=== PATIENT | female | born 1945 | race Caucasian/White ===

== ENCOUNTER → 2016-05-05 | Outpatient (CLI) | payer BC ==
[~2016-05-05] MED LIST: B-COTAB97 PO; CHOLCAP5 PO; CINA0.42 PO; CZR50 PO; FURO-85 PO; GLIM2TAB2 PO; HMLI SC; INSU3INJ3 SC; INSUINJ12 SC; LSX80 PO; LVMIPUC SQ; METO50TA16 PO; SEVE800T7 PO; SIMV20TA5 PO
[2016-05-05 14:00] LABS: BASO % 0.3 %; BASO ABS # 0.01 K/uL (0-0.2); COMPLETE YES; EOS % 1.6 %; IG% 0.3 %; LYMPH % 36.6 %; LYMPH ABS # 1.41 K/uL (1.2-3.4); MEAN CELL VOLUME 92.6 fL (80-100); MEAN CORPUSCULAR HEMOGLOBIN 32.7 pg (25-34); MEAN CORPUSCULAR HGB CONC 35.3 g/dl (32-36); MEAN PLATELET VOLUME 10.2 fL (7.4-10.4); MONO % 9.9 %; NEUT % 51.3 %; PLATELET COUNT 159 K/uL (130-400); RED BLOOD COUNT 3.24 M/uL (4.2-5.4); WHITE BLOOD COUNT 3.85 K/uL (4.8-10.8)
[2016-05-05 14:19] LABS: ALB/GLOB RATIO 0.9 (0.9-2); ALKALINE PHOSPHATASE 134 U/L (45-117); ALT/SGPT 19 U/L (12-78); AST/SGOT 18 U/L (15-37); BLOOD UREA NITROGEN 19 mg/dl (7-18); BUN/CREATININE RATIO 4.2 (10-20); CARBON DIOXIDE 27 mmol/L (21-32); CHLORIDE 100 mmol/L (98-107); CHOLESTEROL 126 mg/dl (0-200); CHOLESTEROL/HDL RATIO 3.6; ESTIMATED AVERAGE GLUCOSE 180 mg/dl; GLUCOSE 234 mg/dl (70-99); HA1C FLAG Normal (Normal); HDL CHOLESTEROL 35 mg/dl; LDL CHOLESTEROL CALCULATED 53 mg/dl; POTASSIUM 3.6 mmol/L (3.5-5.1); SODIUM 138 mmol/L (136-145); TRIGLYCERIDES 192 mg/dl (0-150); VERY LOW DENSITY LIPOPROT CALC 38 mg/dl
== END | disposition home or self-care (01) ==
LOC: C.LABSPEC 14:46
PROVIDERS: ATTEND Family Medicine
DX: E78.2 Mixed hyperlipidemia (principal); E11.9 Type 2 diabetes mellitus without complications; I10 Essential (primary) hypertension

== ENCOUNTER 2016-06-06 05:42 | Inpatient (IN) | payer BC, OTHER ==
[~2016-06-06] VITALS: Ht 165.1 cm; Wt 84.9 kg
[2016-06-06] VITALS (16 sets, daily range): BP systolic 113–183; BP diastolic 62–96; PULSE 64–75; TEMP 36.5–36.8; O2SAT 92–95; Ht 165.1 cm; Wt 84.9 kg
[~2016-06-06 05:42] MED LIST changes: -ATROPINE SULFATE 0.1 MG/ML 5ML SYR IV PRN; -B-COTAB97 PO; -BRIMONIDINE TART 0.2% OP SOLN PER DROP CHARGE ONE; -CINA0.42 PO; -CYCLOPENTOLATE HCL 1% OP SOLN PER DROP CHARGE OPR SCH; -CZR50 PO; -EpHEDrine SULFATE INJ 50 MG/ML AMP IV PRN; -EpINEphrine INJ 1MG/ML AMP 1 MG/ML AMP ONE; -INSU3INJ3 SC; -KETOROLAC 0.5% OP SOLN PER DROP CHARGE OPR SCH; -LACTATED RINGER'S 1000ML 500 ML IV SCH; -LIDOCAINE 4% OP SOLN DROP CHARGE ONE; -LIDOCAINE 4% OP SOLN DROP CHARGE OPR SCH; -LIDOCAINE HCL 1% MPF 2 ML VIAL ONE; -LSX80 PO; -LVMIPUC SQ; -MOXIFLOXACIN OPH SOLN PER DROP CHARGE ONE; -MOXIFLOXACIN OPH SOLN PER DROP CHARGE OPR SCH; -PHENYLEPHRINE HCL 2.5% OP SOLN PER DROP CHARGE OPR SCH; -POVIDONE-IODINE OP SOLN 30 ML BTL ONE; -PROPARACAINE 0.5% OP SOLN PER DROP CHARGE OPR SCH; -TOBRAMYCIN/DEXAMETHASONE OPH OINT PER APPLN CHARGE ONE; -TROPICAMIDE 1% OP SOLN PER DROP CHARGE OPR SCH
[2016-06-06] MEDS ORDERED: NITROGLYCERIN OINT 2% 1GM PACKET ONE (05:55)
[2016-06-06] MEDS ORDERED: NITROGLYCERIN OINT 2% 1GM PACKET EXT ONE (06:00)
[2016-06-06 06:06] LABS: BASO % 0.1 %; BASO ABS # 0.01 K/uL (0-0.2); COMPLETE YES; EOS % 1.8 %; HEMATOCRIT 32.6 % (37-47); IG% 0.1 %; LYMPH % 43.5 %; LYMPH ABS # 3.07 K/uL (1.2-3.4); MEAN CELL VOLUME 91.8 fL (80-100); MEAN CORPUSCULAR HEMOGLOBIN 32.1 pg (25-34); MEAN PLATELET VOLUME 9.5 fL (7.4-10.4); MONO % 7.5 %; PLATELET COUNT 200 K/uL (130-400); RED BLOOD COUNT 3.55 M/uL (4.2-5.4); WHITE BLOOD COUNT 7.05 K/uL (4.8-10.8)
[2016-06-06] MEDS ORDERED: CINA0.42 PO (06:06)
[2016-06-06] MEDS ORDERED: LVMIPUC SQ (06:06)
[2016-06-06] MEDS ORDERED: LORAZEPAM 2 MG/ML 1 ML VIAL IV STA (06:07)
[2016-06-06] MEDS ORDERED: FUROSEMIDE 40 MG/4 ML VIAL IV STA (06:08)
--- NOTE | 2016-06-06 06:09 | EMERGENCY ROOM VISIT NOTE ---
History Report prepared by George: Porter Ta Under the Supervision of: Dr. Desire Miller M.D. First contact with patient: 05:51 Chief Complaint: SHORTNESS OF BREATH Stated Complaint: CHEST PAIN-DIALYSIS History of Present Illness The patient is a 70 year old female who presents to the Emergency Room with complaints of worsening shortness of breath that began at 0415 this morning, 2 hours prior to arrival. The patient called her daughter for help when her symptoms began. Her daughter then called her dialysis clinic in [place] who referred her to [place]. On their drive to [place] the patient became increasingly short of breath and they decided to divert to the emergency department. The patient still produces some urine. She denies recent fever, cough. Pt denies CP. 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 A total of 10 systems reviewed and were otherwise negative. Past Medical & Surgical Medical Problems: (1) End-stage renal disease on hemodialysis (2) SOB (shortness of breath) End-stage renal disease on hemodialysis Family History No pertinent secondary to patient age. Social History Smoking Status: Never Smoker Drug Use: none Marital Status: Housing Status: lives alone Occupation Status: retired Current/Historical Medications Scheduled B-Complex W/ C & Folic Acid ([place]), 1 MG PO DAILY Cholecalciferol (Vitamin D3), 5,000 UNITS PO QAM Cinacalcet (Sensipar), 30 MG PO QPM Furosemide (Furosemide), 80 MG PO DAILY Glimepiride (Glimepiride), 2 MG PO BID Insulin Detemir (Levemir Flextouch), 64 SC PM Losartan Potassium (Losartan Potassium), 50 MG PO DAILY Metoprolol Tartrate (Lopressor) (Lopressor), 50 MG PO BID Sevelamer Carbonate (Renvela), 1 TAB PO WITH SNACKS Sevelamer Carbonate (Renvela), 2 TAB PO TIDM Simvastatin (Zocor), 20 MG PO QAM Allergies Coded Allergies: No Known Allergies (Unverified , 06/06/16) Physical Exam Vital Signs Date Time Temp Pulse Resp B/P Pulse Ox O2 Delivery O2 Flow Rate FiO2 06/06/16 08:44 71 16 169/99 98 06/06/16 08:21 69 06/06/16 07:57 69 18 182/94 98 Nasal Cannula 06/06/16 06:29 73 24 191/109 96 Nasal Cannula 2.0 06/06/16 06:20 74 28 213/105 96 Nasal Cannula 2.0 06/06/16 05:58 79 06/06/16 05:56 89 Room Air 06/06/16 05:54 36.9 78 28 208/112 89 Room Air Physical Exam Vital signs reviewed. Noted to be hypertensive. General: Elderly female in mild distress. HEENT: No scleral icterus, PERRLA, neck supple. Atraumatic. Cardiovascular: Regular rate and rhythm, no extra sounds. Pulmonary: Coarse breath sounds bilaterally, increased work of breathing. On n/ c oxygen Abdomen: Soft, nontender, nondistended, positive bowel sounds. Musculoskeletal: Atraumatic, minimal peripheral edema. Neurologic: Patient awake alert and oriented x 3 Skin: Warm, dry, no rash Medical Decision & Procedures ER Provider Diagnostic Interpretation: X-ray results as stated below per my interpretation and radiologist interpretation. Other radiology results as stated below per my review and radiologist interpretation: CHEST ONE VIEW PORTABLE CLINICAL HISTORY: Shortness of breath, congestive failure. COMPARISON STUDY: 06/19/2014 FINDINGS: The heart is enlarged. There is radiographic evidence of congestive failure with interstitial pulmonary edema. There are small bilateral pleural effusions left greater than right. There is no lobar consolidation.[ IMPRESSION: Cardiomegaly, congestive failure with interstitial pulmonary edema, and small bilateral pleural effusions. Electronically signed by: Ector Monique M.D. 06/06/2016 6:29 AM Dictated Date/Time: 06/06/2016 6:29 AM Laboratory Results Test 06/06/16 05:50 06/06/16 06:02 06/06/16 06:03 06/06/16 06:08 Immature Granulocyte % (Auto) 0.1 % White Blood Count 7.05 K/uL (4.8-10.8) Red Blood Count 3.55 M/uL (4.2-5.4) Hemoglobin 11.4 g/dL (12.0-16.0) Hematocrit 32.6 % (37-47) Mean Corpuscular Volume 91.8 fL (80-100) Mean Corpuscular Hemoglobin 32.1 pg (25-34) Mean Corpuscular Hemoglobin Concent 35.0 g/dl (32-36) Platelet Count 200 K/uL (130-400) Mean Platelet Volume 9.5 fL (7.4-10.4) Neutrophils (%) (Auto) 47.0 % Lymphocytes (%) (Auto) 43.5 % Monocytes (%) (Auto) 7.5 % Eosinophils (%) (Auto) 1.8 % Basophils (%) (Auto) 0.1 % Neutrophils # (Auto) 3.30 K/uL (1.4-6.5) Lymphocytes # (Auto) 3.07 K/uL (1.2-3.4) Monocytes # (Auto) 0.53 K/uL (0.11-0.59) Eosinophils # (Auto) 0.13 K/uL (0-0.5) Basophils # (Auto) 0.01 K/uL (0-0.2) Immature Granulocyte # (Auto) 0.01 K/uL (0.00-0.02) Total Bilirubin 0.7 mg/dl (0.2-1) Direct Bilirubin 0.2 mg/dl (0-0.2) Aspartate Amino Transf (AST/SGOT) 15 U/L (15-37) Alanine Aminotransferase (ALT/SGPT) 23 U/L (12-78) Alkaline Phosphatase 201 U/L (45-117) Total Creatine Kinase 37 U/L (26-192) Total Protein 7.5 gm/dl (6.4-8.2) Albumin 3.4 gm/dl (3.4-5.0) Prothrombin Time 11.8 SECONDS (9.0-12.0) Prothromb Time International Ratio 1.1 (0.9-1.1) Activated Partial Thromboplast Time 27.3 SECONDS (21.0-31.0) Partial Thromboplastin Ratio 1.1 Bedside Hemoglobin 11.6 g/dl (12.0-16.0) Bedside Hematocrit 34 % (37-47) Bedside Sodium 140 mEq/L (135-144) Bedside Potassium 4.1 mEq/L (3.3-5.0) Bedside Chloride 101 mEq/L (101-112) Bedside Total CO2 23 mEq/l (24-31) Bedside Blood Urea Nitrogen 34 mg/dl (7-18) Bedside Creatinine 6.4 mg/dl (0.6-1.3) Bedside Glucose (other) 218 mg/dl (70-99) Bedside Ionized Calcium (Zachary) 0.96 mmol/l (1.12-1.32) Bedside Troponin I 0.000 ng/ml (0-0.045) TS-Vdh-R-Type Natriuretic Peptide > 96588 pg/ml (0-900) Laboratory results per my review. Medications Administered Medications (Trade) Dose Ordered Sig/Ramy Route Start Time Stop Time Status Last Admin Dose Admin Nitroglycerin (Nitroglycerin 2% Oint) 1 inch NOW ONCE EXT 06/06/16 06:00 06/06/16 06:01 DC 06/06/16 06:00 1 INCH Lorazepam (Ativan Inj) 1 mg NOW STAT IV 06/06/16 06:07 06/06/16 06:08 DC 06/06/16 06:11 1 MG Furosemide (Lasix Inj) 40 mg NOW STAT IV 06/06/16 06:08 06/06/16 06:09 DC 06/06/16 06:13 40 MG Albumin Human (Albumin 25%) 12.5 gm NOW STAT IV 06/06/16 08:17 06/06/16 08:18 DC 06/06/16 09:10 12.5 GM ECG Indication: chest pain, SOB/dyspnea Rate (beats per minute): 77 Rhythm: normal sinus Findings: nonspecific-ST abn, prolonged QT (518), other (Poor quality baseline for interpretation) ED Course 0553: Past medical records reviewed. The patient was evaluated in room A11. A complete history and physical examination was performed. 0600: Ordered Nitroglycerin 1 inch EXT 0607: Ordered Lorazepam 1 mg IV, Furosemide 40 mg IV. 0635: I discussed the case with Dr. Jose Ramon Baez Tax Revenue Officer, she will coordinate dialysis in the hospital today. She notes the patient's blood pressure is normally elevated. 0654: I discussed the case with Dr. Haroldo Baez Hospitalist at this time , he will evaluate the patient for further treatment. Medical Decision DDx: Etiologies such as infections, reactive airway disease, pneumonia, pneumothorax , COPD, CHF, cardiac ischemia, pulmonary embolism, musculoskeletal, gastrointestinal, as well as others were entertained. This pt was evaluated and appeared to be in some respiratory discomfort. IV access was obtained and lab work was drawn. Pt was placed on the information writer and NTG paste was applied to ACW. Pt was given IV lasix. EKG reveals no acute ischemia. CXR reveals congestive changes. Lab work reveals a stable K at 4.0, cardiac enzymes are negative. Pt was unable to tolerate BiPAP but was able to maintain her O2 sats with n/c O2. Pt was d/w Dr Juarez of nephrology who has agreed to arrange urgent dialysis. Pt will be evaluated by the hospitalist service for further management. Consults Time Called: 06 Consulting Physician: Dr. Jose Ramon Baez Tax Revenue Officer. Returned Call: 0600 I discussed the case with Dr. Jose Ramon Baez Tax Revenue Officer, she will coordinate dialysis in the hospital today. She notes the patient's blood pressure is normally elevated. Additional Consults: Time Called: 0651 Consulted Physician: Dr. Haroldo Baez Hospitalist Returned Call: [phone] Additional Comments: I discussed the case with Dr. Haroldo Beal at this time, he will evaluate the patient for further treatment. Impression Primary Impression: Congestive heart failure Additional Impression: End-stage renal disease on hemodialysis Critical Care I have personally spent greater than 30 minutes of critical care time in the direct management of this patient. This includes bedside care, interpretation of diagnostic studies, and testing, discussion with consultants, patient, and family members, and other required patient management activities. This 30 minutes is in excess of all separately billable procedures. Scribe Attestation The scribe's documentation has been prepared under my direction and personally reviewed by me in its entirety. I confirm that the note above accurately reflects all work, treatment, procedures, and medical decision making performed by me. Departure Information Dispostion Being Evaluated By Hospitalist Referrals [facility] ([facility] Patient Instructions My [facility] Problem Qualifiers Primary Impression: Congestive heart failure Congestive heart failure type: unspecified congestive heart failure type Congestive heart failure chronicity: unspecified congestive heart failure chronicity Qualified Codes: I50.9 - Heart failure, unspecified
[2016-06-06 06:20] LABS: ISTAT CREATININE 6.4 mg/dl (0.6-1.3); ISTAT HEMOGLOBIN 11.6 g/dl (12.0-16.0); ISTAT IONIZED CALCIUM 0.96 mmol/l (1.12-1.32)
--- NOTE | 2016-06-06 06:31 | DIAGNOSTIC IMAGING REPORT ---
CHEST ONE VIEW PORTABLE CLINICAL HISTORY: Shortness of breath, congestive failure. COMPARISON STUDY: 06/19/2014 FINDINGS: The heart is enlarged. There is radiographic evidence of congestive failure with interstitial pulmonary edema. There are small bilateral pleural effusions left greater than right. There is no lobar consolidation.[ IMPRESSION: Cardiomegaly, congestive failure with interstitial pulmonary edema, and small bilateral pleural effusions. Electronically signed by: Ector Monique M.D. 06/06/2016 6:29 AM Dictated Date/Time: 06/06/2016 6:29 AM
[2016-06-06 06:38] LABS: BUN/CREATININE RATIO 4.8 (10-20); CALCIUM 7.4 mg/dl (8.5-10.1); CKMB/CK RATIO 2.2 (0-3.0); MAGNESIUM 2.3 mg/dl (1.8-2.4)
[2016-06-06] MEDS ORDERED: ALBUT/IPRATROP 3MG/0.5MG NEB 3 ML VIAL INH STA (06:59)
[2016-06-06] MEDS ORDERED: ALBUMIN HUMAN 25% 12.5 GM/50 ML VIAL IV STA (08:17)
[2016-06-06] MEDS ORDERED: CZR50 PO (08:55)
[2016-06-06] MEDS ORDERED: LSX80 PO (08:57)
[2016-06-06] MEDS ORDERED: CALCIUM GLUCONATE 10% 1,000 MG in SODIUM CHLORIDE 0.9% 50ML 50 ML IV ONE (09:00)
[2016-06-06] MEDS ORDERED: INSU3INJ3 SC (09:02)
[2016-06-06] MEDS ORDERED: B-COTAB97 PO (09:05)
[2016-06-06] MEDS ORDERED: DEXTROSE 50% 50 ML SYR IV PRN (09:15)
[2016-06-06] MEDS ORDERED: GLUCOSE 10 TABS/TUBE PO PRN (09:15)
[2016-06-06] MEDS ORDERED: GLUCAGON FOR INJ 1 MG VIAL SQ PRN (09:15)
[2016-06-06] MEDS ORDERED: GLUCOSE 40% GEL 15 GM TUBE PO PRN (09:15)
[2016-06-06] MEDS ORDERED: SEVELAMER HYDROCH 800 MG TAB PO PRN (09:15)
[2016-06-06] MEDS ORDERED: PHARMACY GLYCEMIC MGMT CONSULT PRN (09:18)
[2016-06-06] MEDS ORDERED: IV FLUIDS COMPLETED PRN (10:15)
--- NOTE | 2016-06-06 11:57 | NEPHROLOGY CONSULTATION ---
DATE OF CONSULTATION: 06/06/2016 ATTENDING OF RECORD: [facility]. REASON FOR CONSULTATION: ESRD. HISTORY OF PRESENT ILLNESS: This 70-year-old female who dialyzes Mondays, Wednesdays, Fridays at the [facility] on the third shift. The patient started developing shortness of breath last night and becoming more anxious. Blood pressure worsened and attempted to get dialysis at the [facility] on first shift; however, there were no openings, was traveling to the [facility] for dialysis; however, started to clinically worsened and was brought in to the Emergency Room for further evaluation and treatment. The patient initially had coarse breath sounds bilaterally, was having difficulty breathing. Chest x-ray showed congestive failure with cardiomegaly. The patient was given nitroglycerin, Ativan. The patient is currently satting well on 2-1/2 liters nasal cannula, in no acute distress. The patient at the outpatient dialysis unit had no fluid removed on Monday since patient was at her dry weight and patient does not tolerate aggressive fluid removal, normally takes off around 1 liter and still does urinate, has been diabetic for close to 20 years with diabetic retinopathy as well as underlying hypertension, denies any MIs or strokes. REVIEW OF SYSTEMS: No fevers or chills. No blurry vision, but does have poor vision chronically from her diabetes. No dysphagia. Positive shortness of breath. Denies any chest pain to me. No nausea, vomiting, no diarrhea or constipation. Still urinates. No itching. All other review of systems otherwise negative. PAST MEDICAL HISTORY: End-stage renal disease on dialysis Mondays, Wednesdays, Fridays; hypertension; diabetes; hyperlipidemia; and osteoarthritis. PAST SURGICAL HISTORY: Cholecystectomy, tonsillectomy, cataract surgery, ligation of the OV duct, fistula placement. SOCIAL HISTORY: . No alcohol. No tobacco. No drugs. FAMILY HISTORY: Significant for heart disease in mother and diabetes in mother. CURRENT MEDICATIONS: Reviewed. PHYSICAL EXAMINATION: VITAL SIGNS: Temperature 36.9, pulse 69, respiratory rate 18, blood pressure 182/94, satting 98% on 2 liters. GENERAL: Awake, alert, oriented x3. EYES: No scleral icterus. HEENT: Moist mucous membranes. NECK: Supple. PULMONARY: Basilar rales. CARDIAC: Regular rate and rhythm. ABDOMEN: Bowel sounds positive, soft, nontender. EXTREMITIES: +1 edema bilaterally. NEUROLOGIC: Nonfocal. DERMATOLOGIC: No rash or ulcers noted. LABORATORY DATA: White count 7, H\T\H 11 and 34, platelet count is 200. Sodium level 140, potassium 4.1, chloride is 100, bicarbonate is 23, BUN is 34, creatinine 6.4, calcium is 0.96, magnesium is 2.3, alkaline phosphatase 201. Albumin is 3.4. IMAGING DATA: Chest x-ray shows congestive heart failure. IMPRESSION AND PLAN: End-stage renal disease: The patient with dialysis Mondays, Wednesdays, and Fridays. No fluid removal done on Monday. The patient's blood pressures tend to drop rather precipitously with aggressive uf likely secondary to calcification of vessels. In my opinion, the patient likely has an element of mitral regurgitation which may worsen in the setting of worsening hypertension and volume overload and trying to control her anxiety and lower her blood pressure will help with her flash pulmonary edema. I am obtaining an echo to assess valvular disease. We will attempt 2 liters as blood pressure tolerates. Perhaps may have lost weight and needs dry weight adjusted; however, difficult situation given her propensity to become symptomatic with hypotension when we need to take off more fluid than she can tolerate. Likely has decreased capillary permeability refill rate and unable to mobilize third space fluid well at all. We will see what her echo shows and do dialysis this morning and see if we are able to remove fluid as tolerated and help with her breathing with findings of congestive heart failure. I appreciate the consultation. LAURYN
[2016-06-06 13:28] LABS: INR 1.1 (0.9-1.1); PARTIAL THROMBOPLASTIN RATIO 1.1; PROTHROMBIN TIME (PATIENT) 11.8 SECONDS (9.0-12.0)
[2016-06-06] MEDS: SEVELAMER HYDROCH 800 MG TAB PO SCH ×2 (13:44→16:50)
[2016-06-06] MEDS ORDERED: HEPARIN SOD 5000 UNIT/0.5 ML CARP SQ SCH (14:00)
[2016-06-06 14:28] LABS: BLOOD UREA NITROGEN 15 mg/dl (7-18); BUN/CREATININE RATIO 3.9 (10-20); CALCIUM 8.1 mg/dl (8.5-10.1); CARBON DIOXIDE 31 mmol/L (21-32); CHLORIDE 101 mmol/L (98-107); GLUCOSE 106 mg/dl (70-99); POTASSIUM 3.5 mmol/L (3.5-5.1); SODIUM 140 mmol/L (136-145)
[2016-06-06] MEDS: INSULIN ASPART 100 UNITS/ML 3 ML PEN SC SCH ×3 (14:46→21:00)
[2016-06-06] MEDS: HEPARIN SOD 5000 UNIT/0.5 ML CARP SQ SCH ×2 (14:48→21:08)
--- NOTE | 2016-06-06 14:53 | Pharmacy Progress Note ---
Glycemic Control Intl Consult Date of Service Jun 06, 2016. Scope Glycemic Pharmacist consulted by Dr Figueroa on 06/06/16 for glycemic control and to write orders per [facility] inpatient glycemic control protocol. Objective Weight (Kilograms): 86.400 Accuchecks BSG (last 24hrs): Test 06/06/16 05:50 06/06/16 13:23 Random Glucose 206 mg/dl (70-99) 106 mg/dl (70-99) Laboratory Data (last 24hrs) Test 06/06/16 05:50 06/06/16 06:03 06/06/16 13:23 Anion Gap 14.0 mmol/L 21.0 mmol/L 8.0 mmol/L BUN/Creatinine Ratio 4.8 3.9 Blood Urea Nitrogen 34 mg/dl 15 mg/dl Creatinine 7.00 mg/dl 3.80 mg/dl Potassium Level 4.0 mmol/L 3.5 mmol/L Sodium Level 140 mmol/L 140 mmol/L White Blood Count 7.05 K/uL Red Blood Count 3.55 M/uL Hemoglobin 11.4 g/dL Hematocrit 32.6 % Mean Corpuscular Volume 91.8 fL Mean Corpuscular Hemoglobin 32.1 pg Mean Corpuscular Hemoglobin Concent 35.0 g/dl Platelet Count 200 K/uL Mean Platelet Volume 9.5 fL Neutrophils (%) (Auto) 47.0 % Lymphocytes (%) (Auto) 43.5 % Monocytes (%) (Auto) 7.5 % Eosinophils (%) (Auto) 1.8 % Basophils (%) (Auto) 0.1 % Neutrophils # (Auto) 3.30 K/uL Lymphocytes # (Auto) 3.07 K/uL Monocytes # (Auto) 0.53 K/uL Eosinophils # (Auto) 0.13 K/uL Basophils # (Auto) 0.01 K/uL Recent Pertinent Medications Outpatient Anti-diabetic Regimen: * Levemir 64 units SQ QPM -- will verify dose w/ pt/family when available (H&P reports home dose of 32 units QPM) * A1c = difficult to interpret in pt on dialysis Risk Factors for Insulin Resistance: * Diet: Renal Assessment & Plan ASSESSMENT: * ADA & AACE recommend a goal blood sugar range 140-180 mg/dl for the majority of critically ill & non-critically ill patients. However, more stringent targets may be selected in individual cases. 2/20/17 * Patient is a 70yo diabetic female who also receives intermittent hemodialysis as an outpatient. * There is some discrepancy w/ the documentation of her home Levemir dose, so this will be verified w/ patient's family when available. For now, will initiate insulin regimen conservatively. * Patient received dialysis upon arrival to the hospital today. BSG 218 --> 106 after treatment. PLAN FOR INPATIENT GLYCEMIC CONTROL: * Holding outpatient oral diabetes medications * Basal insulin with LANTUS 20 units SQ BID * Give 1/2 dose only if BSG less than 120 mg/dL * Correctional Insulin with NOVOLOG per scale ACHS or Q6hrs while NPO * Goal Range: Low 140 mg/dL - High 180 mg/dL * Correction Factor: 25 mg/dL/unit * Nutritional / Prandial insulin per carb ratio of 1 unit per 9 grams CHO consumed * Please note that the plan above was derived based on current level of insulin resistance and hospital stress. These recommendations are appropriate for inpatient admission only. Plan of care upon discharge will need to be reassessed to avoid potential outpatient hypo/hyperglycemia. Thank you.
[2016-06-06] MEDS ORDERED: CINACALCET 30 MG TAB PO SCH (21:00)
[2016-06-06] MEDS: INSULIN DETEMIR FLEXPEN/FLEX TOUCH 100 UNITS/ML 3ML SC SCH (21:00)
[2016-06-06] MEDS ORDERED: INSULIN DETEMIR FLEXPEN/FLEX TOUCH 100 UNITS/ML 3ML SC SCH (21:00)
[2016-06-06] MEDS: METOPROLOL TARTRATE 50 MG TAB PO SCH (21:07)
--- NOTE | 2016-06-06 21:26 | History and Physical ---
History & Physical Date & Time of Service: Jun 06, 2016 at 09:11 Chief Complaint: Chest Pain-Dialysis Primary Care Physician: Jack Dockery M.D. ([facility]) History of Present Illness Source: patient, family, clinic records, hospital records 70 year old female with PMH of Hyperlipemia, DM type 2 presents to the Emergency Room with complaints of worsening shortness of breath that started this morning. Pt had HD last Monday, where she did not have alot fluid removed because she was at her dry weight. This morning around 4 am she started to have SOB that got worst.Her daughter called the [facility] who said they could not get her in today. They advised the daughter to take the patient to the [facility]. On their to the [facility], her SOB got worst and they drove her to the ED. currently pt said that her SOB improved alittle. she denies any chest pain, palpitation, fever, dizziness and SOB. case discussed with Dr. Gupta in the ED that put order for pt to get HD this morning. Past Medical/Surgical History Medical Problems: (1) End-stage renal disease on hemodialysis Status: Chronic Social History Smoking Status: Never Smoker Drug Use: none Marital Status: Occupational Status: retired Allergies Coded Allergies: No Known Allergies (Unverified , 06/06/16) Home Medications Scheduled B-Complex W/ C & Folic Acid ([place]), 1 MG PO DAILY Cholecalciferol (Vitamin D3), 5,000 UNITS PO QAM Cinacalcet (Sensipar), 30 MG PO QPM Furosemide (Furosemide), 80 MG PO DAILY Glimepiride (Glimepiride), 2 MG PO BID Insulin Detemir (Levemir Flextouch), 64 SC PM Losartan Potassium (Losartan Potassium), 50 MG PO DAILY Metoprolol Tartrate (Lopressor) (Lopressor), 50 MG PO BID Sevelamer Carbonate (Renvela), 1 TAB PO WITH SNACKS Sevelamer Carbonate (Renvela), 2 TAB PO TIDM Simvastatin (Zocor), 20 MG PO QAM Physical Exam Vital Signs Date Time Temp Pulse Resp B/P Pulse Ox O2 Delivery O2 Flow Rate FiO2 06/06/16 08:44 71 16 169/99 98 06/06/16 08:21 69 06/06/16 07:57 69 18 182/94 98 Nasal Cannula 06/06/16 06:29 73 24 191/109 96 Nasal Cannula 2.0 06/06/16 06:20 74 28 213/105 96 Nasal Cannula 2.0 06/06/16 05:58 79 06/06/16 05:56 89 Room Air 06/06/16 05:54 36.9 78 28 208/112 89 Room Air General Appearance: WD/WN, no apparent distress Head: normocephalic, atraumatic Eyes: normal inspection, PERRL, EOMI ENT: normal ENT inspection, hearing grossly normal Neck: supple, no JVD Respiratory/Chest: chest non-tender, normal breath sounds, no respiratory distress, no accessory muscle use Cardiovascular: regular rate, rhythm, no JVD Abdomen/GI: normal bowel sounds, non tender, soft Back: normal inspection, no CVA tenderness Extremities/Musculoskelatal: normal inspection, no calf tenderness Neurologic/Psych: alert, normal mood/affect, oriented x 3 Skin: warm/dry, no rash Diagnostics Laboratory Results Results Past 24 Hours Test 06/06/16 05:50 06/06/16 06:03 06/06/16 09:00 Range/Units White Blood Count 7.05 4.8-10.8 K/uL Red Blood Count 3.55 4.2-5.4 M/uL Hemoglobin 11.4 12.0-16.0 g/dL Hematocrit 32.6 37-47 % Mean Corpuscular Volume 91.8 80-100 fL Mean Corpuscular Hemoglobin 32.1 25-34 pg Mean Corpuscular Hemoglobin Concent 35.0 32-36 g/dl Platelet Count 200 130-400 K/uL Mean Platelet Volume 9.5 7.4-10.4 fL Neutrophils (%) (Auto) 47.0 % Lymphocytes (%) (Auto) 43.5 % Monocytes (%) (Auto) 7.5 % Eosinophils (%) (Auto) 1.8 % Basophils (%) (Auto) 0.1 % Neutrophils # (Auto) 3.30 1.4-6.5 K/uL Lymphocytes # (Auto) 3.07 1.2-3.4 K/uL Monocytes # (Auto) 0.53 0.11-0.59 K/uL Eosinophils # (Auto) 0.13 0-0.5 K/uL Basophils # (Auto) 0.01 0-0.2 K/uL RDW Standard Deviation 47.5 36.4-46.3 fL RDW Coefficient of Variation 14.1 11.5-14.5 % Immature Granulocyte % (Auto) 0.1 % Immature Granulocyte # (Auto) 0.01 0.00-0.02 K/uL Sodium Level 140 136-145 mmol/L Potassium Level 4.0 3.5-5.1 mmol/L Chloride Level 103 98-107 mmol/L Carbon Dioxide Level 23 21-32 mmol/L Anion Gap 14.0 21.0 16-25 mmol/L Blood Urea Nitrogen 34 7-18 mg/dl Creatinine 7.00 0.60-1.20 mg/dl Est Creatinine Clear Calc Drug Dose 8.0 ml/min Estimated GFR () 6.3 Estimated GFR (Non- 5.4 BUN/Creatinine Ratio 4.8 10-20 Random Glucose 206 70-99 mg/dl Calcium Level 7.4 8.5-10.1 mg/dl Magnesium Level 2.3 1.8-2.4 mg/dl Total Bilirubin 0.7 0.2-1 mg/dl Direct Bilirubin 0.2 0-0.2 mg/dl Aspartate Amino Transf (AST/SGOT) 15 15-37 U/L Alanine Aminotransferase (ALT/SGPT) 23 12-78 U/L Alkaline Phosphatase 201 45-117 U/L Total Creatine Kinase 37 26-192 U/L Creatine Kinase MB 0.8 0.5-3.6 ng/ml Creatine Kinase MB Ratio 2.2 0-3.0 Total Protein 7.5 6.4-8.2 gm/dl Albumin 3.4 3.4-5.0 gm/dl Bedside Hemoglobin 11.6 12.0-16.0 g/dl Bedside Hematocrit 34 37-47 % Bedside Sodium 140 135-144 mEq/L Bedside Potassium 4.1 3.3-5.0 mEq/L Bedside Chloride 101 101-112 mEq/L Bedside Total CO2 23 24-31 mEq/l Bedside Blood Urea Nitrogen 34 7-18 mg/dl Bedside Creatinine 6.4 0.6-1.3 mg/dl Bedside Glucose (other) 218 70-99 mg/dl Bedside Ionized Calcium (Zachary) 0.96 1.12-1.32 mmol/l Diagnostic Radiology [~ rep ct add3]] CHEST ONE VIEW PORTABLE CLINICAL HISTORY: Shortness of breath, congestive failure. COMPARISON STUDY: 06/19/2014 FINDINGS: The heart is enlarged. There is radiographic evidence of congestive failure with interstitial pulmonary edema. There are small bilateral pleural effusions left greater than right. There is no lobar consolidation.[ IMPRESSION: Cardiomegaly, congestive failure with interstitial pulmonary edema, and small bilateral pleural effusions. Electronically signed by: Ector Monique M.D. 06/06/2016 6:29 AM Dictated Date/Time: 06/06/2016 6:29 AM Impression Assessment and Plan Worsening SOB mostly related to pulmonary edema last HD was last Monday, no fluid was removed because pt was at her dry weight CXR showed congestive failure with interstitial pulmonary edema will repeat cxr in am she schedule to get HD this morning Will get an echo of the heart EKG showed no significant ST changes will check troponin will monitor in telemetry ESRD HD on MON/Mon/ Mon CXR showed pulmonary edema nephro on board will get HD today HTN BP elevated As per nephro pt BP dropped significantly after HD will monitor BP closely continue losartan, lasix and metoprolol if stays elevating, will add prn hydralazine DM type 2 will hold oral med Hhba1c 7.9 on (05/03) will decrease levemir dose during the hospital stay continue insulin coverage consult pharmacy for glycemic control Hypocalcemia calcium replaced continue monitor DVT px on heparin subq CODE STATUS Full code Level of Care Telemetry Resuscitation Status FULL RESUSCITATION VTE Prophylaxis VTE Risk Assessment Done? Y/N: Yes Risk Level: Moderate Given or contraindicated: Unfractionated heparin SQ Additional Copies To Jack Dockery MD
[2016-06-06] MEDS ORDERED: ALBUT/IPRATROP 3MG/0.5MG NEB 3 ML VIAL INH PRN (23:15)
[2016-06-07] VITALS (19 sets, daily range): BP systolic 148–203; BP diastolic 62–105; PULSE 62–105; TEMP 36.7–37.2; O2SAT 88–99
[2016-06-07] MEDS: METOPROLOL TARTRATE 50 MG TAB PO SCH (04:27)
[2016-06-07 05:34] LABS: HEMATOCRIT 28.9 % (37-47); MEAN CELL VOLUME 95.1 fL (80-100); MEAN CORPUSCULAR HEMOGLOBIN 32.9 pg (25-34); MEAN CORPUSCULAR HGB CONC 34.6 g/dl (32-36); MEAN PLATELET VOLUME 9.9 fL (7.4-10.4); PLATELET COUNT 150 K/uL (130-400); RED BLOOD COUNT 3.04 M/uL (4.2-5.4); WHITE BLOOD COUNT 4.75 K/uL (4.8-10.8)
[2016-06-07 06:19] LABS: BUN/CREATININE RATIO 4.6 (10-20); CALCIUM 7.6 mg/dl (8.5-10.1); MAGNESIUM 2.1 mg/dl (1.8-2.4); PHOSPHORUS 3.5 mg/dl (2.5-4.9); POTASSIUM 3.9 mmol/L (3.5-5.1)
--- NOTE | 2016-06-07 06:19 | Nephrology Progress Note ---
Nephrology Progress Note Date of Service: Jun 07, 2016. Subjective 70 yo female with chf and underwent dialysis yesterday. was able to remove about a liter of fluid. pt comfortable but oxygen sats are below 90% requiring nasal cannula. pt inquiring about going home. Objective Date Time Temp Pulse Resp B/P Pulse Ox O2 Delivery O2 Flow Rate FiO2 06/07/16 04:00 36.7 78 18 180/92 95 Nasal Cannula 2.0 06/07/16 04:00 Room Air 06/07/16 00:01 36.8 71 20 148/62 88 Room Air 06/07/16 00:01 Room Air 06/07/16 00:01 95 Nasal Cannula 2.0 06/06/16 20:00 36.8 74 22 176/79 92 Room Air 06/06/16 20:00 Room Air 06/06/16 16:00 95 Room Air 06/06/16 16:00 36.6 73 16 121/96 95 Room Air 06/06/16 12:30 36.7 75 18 183/75 94 Room Air 06/06/16 08:44 71 16 169/99 98 06/06/16 08:21 69 06/06/16 07:57 69 18 182/94 98 Nasal Cannula 06/06/16 06:29 73 24 191/109 96 Nasal Cannula 2.0 06/06/16 06:20 74 28 213/105 96 Nasal Cannula 2.0 Physical Exam: General-aaox3 Eyes-no scleral icterus ENT-mmm Neck-supple Lungs-right sided rales-overall sounds much better Heart-rrr Abdomen-bs+ s/nt/nd Extremities-no c/c/e Neuro-nonfocal Current Inpatient Medications Medications (Trade) Dose Ordered Sig/Ramy Route Start Time Stop Time Status Last Admin Dose Admin Heparin Sodium (Porcine) (Heparin Sq 5000 Unit/0.5ml) 5,000 unit Q8 SQ 06/06/16 14:00 07/06/16 13:59 06/06/16 21:08 5,000 UNIT Furosemide (Lasix Tab) 80 mg DAILY PO 06/07/16 09:00 07/07/16 08:59 Losartan Potassium (coZAAR TAB) 50 mg DAILY PO 06/07/16 09:00 07/07/16 08:59 Metoprolol Tartrate (Lopressor Tab) 50 mg BID PO 06/06/16 21:00 07/06/16 20:59 06/07/16 04:27 50 MG Simvastatin (Zocor Tab) 20 mg QAM PO 06/07/16 09:00 07/07/16 08:59 Vitamin B Complex/ Vit C/Folic Acid (Nephrocaps) 1 cap DAILY PO 06/07/16 09:00 07/07/16 08:59 Cholecalciferol (Vitamin D Tab) 5,000 inter.unit QAM PO 06/07/16 09:00 07/07/16 08:59 Cinacalcet (Sensipar) 30 mg QPM PO 06/06/16 21:00 07/06/16 20:59 06/06/16 21:07 30 MG Sevelamer HCl (Renagel Tab) 800 mg TID PRN PO 06/06/16 09:15 07/06/16 09:14 Sevelamer HCl (Renagel Tab) 1,600 mg TIDM PO 06/06/16 13:00 07/06/16 12:59 06/06/16 16:50 1,600 MG Insulin Aspart (novoLOG ASPART) SLIDING SCALE If C... ACHS SC 06/06/16 11:00 07/06/16 10:59 06/06/16 16:56 5 UNITS Glucose (Glucose 40% Gel) 15-30 GRAMS 15 GRAMS... UD PRN PO 06/06/16 09:15 07/06/16 09:14 Glucose (Glucose Chew Tab) 4-8 Tablets 4 Tabl... UD PRN PO 06/06/16 09:15 07/06/16 09:14 Dextrose (Dextrose 50% 50ML Syringe) 25-50ML OF 50% DW IV FOR... UD PRN IV 06/06/16 09:15 07/06/16 09:14 Glucagon (Glucagon Inj) 1 mg UD PRN SQ 06/06/16 09:15 07/06/16 09:14 Miscellaneous Information (Consult Glycemic Management Pharmacy) 1 ea UD PRN N/A 06/06/16 09:18 07/06/16 09:17 Miscellaneous (Iv Fluids Completed) 1 ea PRN PRN N/A 06/06/16 10:15 06/06/17 10:14 Insulin Detemir (Levemir Flexpen/ FlexTouch) 20 unit BID SC 06/06/16 21:00 07/06/16 20:59 Albuterol/ Ipratropium (Duoneb) 3 ml Q2H PRN INH 06/06/16 23:15 07/06/16 23:14 Last 24 Hours Test 06/06/16 09:00 06/06/16 13:23 06/06/16 16:24 06/06/16 20:38 Creatine Kinase MB Ratio Sodium Level 140 mmol/L Potassium Level 3.5 mmol/L Chloride Level 101 mmol/L Carbon Dioxide Level 31 mmol/L Anion Gap 8.0 mmol/L Blood Urea Nitrogen 15 mg/dl Creatinine 3.80 mg/dl Est Creatinine Clear Calc Drug Dose 14.7 ml/min Estimated GFR () 13.2 Estimated GFR (Non- 11.4 BUN/Creatinine Ratio 3.9 Random Glucose 106 mg/dl Calcium Level 8.1 mg/dl Creatine Kinase MB 0.7 ng/ml Troponin I 0.024 ng/ml Bedside Glucose 135 mg/dl Test 06/06/16 20:57 06/07/16 05:10 Bedside Glucose 128 mg/dl Creatine Kinase MB 0.7 ng/ml Troponin I 0.020 ng/ml White Blood Count 4.75 K/uL Red Blood Count 3.04 M/uL Hemoglobin 10.0 g/dL Hematocrit 28.9 % Mean Corpuscular Volume 95.1 fL Mean Corpuscular Hemoglobin 32.9 pg Mean Corpuscular Hemoglobin Concent 34.6 g/dl RDW Standard Deviation 49.1 fL RDW Coefficient of Variation 14.3 % Platelet Count 150 K/uL Mean Platelet Volume 9.9 fL Assessment & Plan ESRD-for dialysis again today with albumin to try to help improve oxygen sats. still requiring nasal cannula but overall much more comfortable. echo results pending. from renal perspective ok to go home after dialysis if breathing well on room air. bp drops precipitously with minimal fluid removal. has significant calcification of vessels causing brittle hypertension.
[2016-06-07 06:20] LABS: CREATININE 5.7 mg/dl (0.60-1.20)
[2016-06-07] MEDS ORDERED: ALBUMIN HUMAN 25% 12.5 GM/50 ML VIAL IV STA (06:25)
[2016-06-07] MEDS: HEPARIN SOD 5000 UNIT/0.5 ML CARP SQ SCH ×2 (06:29→16:17)
[2016-06-07] MEDS: INSULIN ASPART 100 UNITS/ML 3 ML PEN SC SCH ×3 (06:45→16:18)
[2016-06-07] MEDS: SEVELAMER HYDROCH 800 MG TAB PO SCH ×3 (08:20→16:19)
[2016-06-07] MEDS: INSULIN DETEMIR FLEXPEN/FLEX TOUCH 100 UNITS/ML 3ML SC SCH (08:22)
[2016-06-07 08:47] LABS: HEPATITIS B AB POS
[2016-06-07] MEDS ORDERED: CHOLECALCIFEROL 1000 INTER.UNIT TAB PO SCH (09:00)
[2016-06-07] MEDS ORDERED: LOSARTAN POTASSIUM 50 MG TAB PO SCH (09:00)
[2016-06-07] MEDS ORDERED: ALBUMIN HUMAN 25% 12.5 GM/50 ML VIAL IV SCH (09:00)
[2016-06-07] MEDS ORDERED: NEPHROCAPS PO SCH (09:00)
[2016-06-07] MEDS ORDERED: SIMVASTATIN 20 MG TAB PO SCH (09:00)
[2016-06-07] MEDS ORDERED: FUROSEMIDE 80 MG TAB PO SCH (09:00)
--- NOTE | 2016-06-07 13:51 | Pharmacy Progress Note ---
Glycemic Control: Progress Nt Date of Service Jun 07, 2016. Scope Glycemic Pharmacist consulted by Dr Figueroa on 06/06/16 for glycemic control and to write orders per [facility] inpatient glycemic control protocol. Objective Accuchecks BSG (last 24hrs): Test 06/06/16 16:24 06/06/16 20:57 06/07/16 05:10 06/07/16 11:34 Bedside Glucose 135 mg/dl (70-90) 128 mg/dl (70-90) 126 mg/dl (70-90) Random Glucose 138 mg/dl (70-99) Laboratory Data (last 24hrs) Test 06/07/16 05:10 Anion Gap 10.0 mmol/L BUN/Creatinine Ratio 4.6 Blood Urea Nitrogen 26 mg/dl Creatinine 5.70 mg/dl Potassium Level 3.9 mmol/L Sodium Level 140 mmol/L White Blood Count 4.75 K/uL Recent Pertinent Medications Outpatient Anti-diabetic Regimen: * Levemir 20-30 units Q HS depending on BSG; will hold dose if BSG less than 120 * Glimepiride 2mg PO BID * A1c = ? % not checked due to ESRD The patient is currently receiving: * Basal insulin: Levemir 20 units every 12 hours - patient refused dose last evening; 20 units given this AM * Correctional Insulin: Novolog Correction per scale ACHS Goal Range: Low 140 mg/dL - High 180 mg/dL Correction Factor: 25 mg/dL/unit * Prandial insulin: Per carb ratio of 1 unit per 9 grams CHO consumed * Oral Agents: None currently Risk Factors for Insulin Resistance: * Diet: ordered T2DM / Renal diet. Assessment & Plan ASSESSMENT: 06/07/16 * BSG control has been acceptable over the last 24 hours. Over the last 24 hours BSGs have ranged 106-138 * Fasting BSG was 138 today with no basal insulin on board as pt refused the Levemir 20 unit dose last evening because she felt the BSG was too low (HS BSG was 128) * Pt reported to me that she uses a lower basal insulin dose than was reported on the medrec, will restart Levemir at a reduced dose given this new information. This reduced dose will be split BID to allow for greater dosing flexibility while hospitalized as I feel she may be prone to hypoglycemia. Next dose will not be given until tomorrow AM as she received a full 20 units this AM. I anticipate her total daily basal requirement to be 20-25 units. * She was being dialyzed this AM, which often leads to improved insulin sensitivity * Will lessen the prandial insulin dose slightly today as she may require less insulin than originally thought - will trend post-prandial BSGs PLAN FOR INPATIENT GLYCEMIC CONTROL: * Decreasing Levemir to 10 units SQ BID; hold if BSG less than 120 * Continuing correction factor of 25 mg/dl/unit * Changing carb ratio to 1 unit per 10 grams CHO consumed * Continuing goal range of Low 140 mg/dL - High 180 mg/dL RECOMMENDATIONS FOR DISCHARGE: * * Please note that the plan above was derived based on current level of insulin resistance and hospital stress. These recommendations are appropriate for inpatient admission only. Plan of care upon discharge will need to be reassessed to avoid potential outpatient hypo/hyperglycemia. Thank you.
--- NOTE | 2016-06-07 15:52 | ECHOCARDIOGRAM REPORT ---
*NOTICE TO RECEIVING LIBERTARIAN AGENCY This information is strictly Confidential and protected under [place] law. [place] law prohibits you from making any further disclosure of this information unless further disclosure is expressly permitted by the written consent of the person to whom it pertains or is authorized by law. A general authorization for the release of medical or other information is not sufficient for this purpose. Hospital accepts no responsibility if the information is made available to any other person, INCLUDING THE PATIENT. Interpretation Summary * Name: RONAN SORIANO Study Date: 06/06/2016 04:09 PM BP: 169/99 mmHg * [facility] HR: 75 * : 1945 (M/d/yyy) Gender: Female Height: 64 in * Age: 70 yrs Ethnicity: [place] Weight: 190 lb * Ordering Physician: Jakob Gupta * Performed By: Maryellen Persaud RDCS * * Reason For Study: Congestive heart failure * BSA: 1.9 m2 * -- Conclusions -- * The left ventricular wall motion is normal. * The LV Ejection Fraction = 55-60%. * Grade I diastolic dysfunction, (abnormal relaxation pattern). * Doppler findings do not suggest pulmonary hypertension. * There is no significant valvular heart disease. Procedure Details * A complete two-dimensional transthoracic echocardiogram was performed (2D, M-mode, Doppler and color flow Doppler). Left Ventricle * The left ventricle is normal in size. * There is normal left ventricular wall thickness. * Left ventricular systolic function is normal. * Ejection Fraction = 55-60%. * The left ventricular wall motion is normal. Right Ventricle * The right ventricle is normal size. * The right ventricular systolic function is normal as assessed by tricuspid annular plane systolic excursion (TAPSE) (normal >1.5 cm). Atria * The left atrial size is normal. * Right atrial size is normal. * There is no evidence of atrial septal defect, but resolution does not allow assessment for a patent foramen ovale. Mitral Valve * The mitral valve is normal. * There is no mitral valve stenosis. * Significant mitral regurgitation is absent. Tricuspid Valve * The tricuspid valve is normal. * There is no tricuspid stenosis. * Significant tricuspid regurgitation is absent. * Doppler findings do not suggest pulmonary hypertension. Aortic Valve * The aortic valve is trileaflet. * Aortic stenosis is absent. * There is no significant aortic regurgitation. Pulmonic Valve * The pulmonary valve is not well seen, but the Doppler examination is normal without significant regurgitation or stenosis. Great Vessels * The aortic root and proximal ascending aorta are normal sized. Pericardium/Pleural * There is a trace loculated pericaridial effusion adjacent to the right atrium and right ventricle. * There are no echocardiographic indications of cardiac tamponade. Great Vessels * Normal inferior vena cava diameter and respiratory variation suggests normal central venous pressure. Left Ventricular Diastolic Function * Grade I diastolic dysfunction, (abnormal relaxation pattern). MMode 2D Measurements and Calculations IVSd 1.1 cm LVIDd 5.0 cm LVIDs 3.4 cm LVPWd 0.99 cm IVS/LVPW 1.1 FS 32.4 % EDV(Teich) 117.5 ml ESV(Teich) 46.5 ml EF(Teich) 60.5 % EDV(cubed) 124.0 ml ESV(cubed) 38.3 ml EF(cubed) 69.1 % LV mass(C)d 188.9 grams LV mass(C)dI 98.7 grams/m\S\2 CO(Teich) 5.3 l/min CI(Teich) 2.8 l/min/m\S\2 SV(Teich) 71.0 ml SI(Teich) 37.1 ml/m\S\2 CO(cubed) 6.4 l/min CI(cubed) 3.4 l/min/m\S\2 SV(cubed) 85.7 ml SI(cubed) 44.8 ml/m\S\2 Ao root diam 3.2 cm Ao root area 7.9 cm\S\2 ACS 1.9 cm LA dimension 3.0 cm asc Aorta Diam 3.0 cm LA/Ao 0.93 LVOT diam 2.0 cm LVOT area 3.2 cm\S\2 LVAd ap4 40.0 cm\S\2 LVLd ap4 9.1 cm EDV(MOD-sp4) 143.0 ml LVAs ap4 23.2 cm\S\2 LVLs ap4 7.6 cm ESV(MOD-sp4) 59.0 ml EF(MOD-sp4) 58.7 % LVAd ap2 29.6 cm\S\2 LVLd ap2 7.9 cm EDV(MOD-sp2) 92.0 ml LVAs ap2 18.2 cm\S\2 LVLs ap2 7.3 cm ESV(MOD-sp2) 37.0 ml EF(MOD-sp2) 59.8 % CO(MOD-sp4) 6.3 l/min CI(MOD-sp4) 3.3 l/min/m\S\2 SV(MOD-sp4) 84.0 ml SI(MOD-sp4) 43.9 ml/m\S\2 CO(MOD-sp2) 4.1 l/min CI(MOD-sp2) 2.2 l/min/m\S\2 SV(MOD-sp2) 55.0 ml SI(MOD-sp2) 28.7 ml/m\S\2 Doppler Measurements and Calculations MV E max brittni 113.0 cm/sec MV A max brittni 122.4 cm/sec MV E/A 0.92 MV dec time 0.15 sec Ao V2 max 147.7 cm/sec Ao max PG 8.7 mmHg Ao max PG (full) 4.3 mmHg RUI(V,A) 2.3 cm\S\2 RUI(V,D) 2.3 cm\S\2 LV V1 max PG 4.5 mmHg LV V1 max 105.6 cm/sec PA V2 max 99.1 cm/sec PA max PG 3.9 mmHg PA acc slope 464.2 cm/sec\S\2 PA acc time 0.16 sec PA pr(Accel) 7.7 mmHg
--- NOTE | 2016-06-07 16:17 | Discharge Instructions ---
Discharge Instructions Admission Reason for Admission: Sob, Shorness Of Breath Discharge Discharge Diagnosis / Problem: Shortness of breath Discharge Goals Goal(s): Decrease discomfort Activity Recommendations Activity Limitations: resume your previous activity . Instructions / Follow-Up Instructions / Follow-Up Please schedule a hospital discharge follow up appointment with your primary care provider Dr. Dockery. Please resume your normal outpatient dialysis schedule. Dr. Gupta will call and coordinate with your dialysis center. Current Hospital Diet Patient's current hospital diet: Renal Diet, Diabetes Type 2 Diet Discharge Diet Recommended Diet: Diabetes Type 2 Diet, Renal Diet Pending Studies Studies pending at discharge: no Laboratory Results Hemoglobin A1c Test 05/05/16 11:30 Range/Units Estimated Average Glucose 180 mg/dl Hemoglobin A1c 7.9 H 4.5-5.6 % Lipid Panel Test 05/05/16 11:30 Range/Units Triglycerides Level 192 H 0-150 mg/dl Cholesterol Level 126 0-200 mg/dl HDL Cholesterol 35 mg/dl Cholesterol/HDL Ratio 3.6 LDL Cholesterol, Calculated 53 mg/dl Medical Emergencies . Who to Call and When: Medical Emergencies: If at any time you feel your situation is an emergency, please call 911 immediately. . Non-Emergent Contact Non-Emergency issues call your: Primary Care Provider . . "Provider Documentation" section prepared by Bhavya Yadav. VTE Core Measure Inpt VTE Proph given/why not?: Unfractionated heparin SQ
[2016-06-07 17:52] LABS: POINT OF CARE PRO-BNP > 20000 pg/ml (0-900)
--- NOTE | 2016-06-07 21:41 | Discharge Summary ---
Discharge Summary Date of Service Jun 07, 2016. Discharge Summary Admission Date: Jun 06, 2016 at 08:44 Discharge Date: Jun 07, 2016 Discharge Disposition: Home Principal Diagnosis: Shortness of breath Secondary Diagnoses/Problems: ESRD on HD Procedures: TTE * The left ventricular wall motion is normal. * The LV Ejection Fraction = 55-60%. * Grade I diastolic dysfunction, (abnormal relaxation pattern). * Doppler findings do not suggest pulmonary hypertension. * There is no significant valvular heart disease. Consultations: Nephrology Medication Reconciliation Continued Medications: B-Complex W/ C & Folic Acid ([place]) 1 Tab Tab 1 MG PO DAILY Cholecalciferol (Vitamin D3) 5,000 Unit Cap 5000 UNITS PO QAM Cinacalcet (Sensipar) 30 Mg Tab 30 MG PO QPM, TAB Furosemide (Furosemide) 80 Mg Tab 80 MG PO DAILY, TAB Glimepiride (Glimepiride) 2 Mg Tab 2 MG PO BID Insulin Detemir (Levemir Flextouch) 100 Unit/Ml Inj 64 SC PM Losartan Potassium (Losartan Potassium) 50 Mg Tab 50 MG PO DAILY Metoprolol Tartrate (Lopressor) (Lopressor) 50 Mg Tab 50 MG PO BID Sevelamer Carbonate (Renvela) 800 Mg Tab 1 TAB PO WITH SNACKS Sevelamer Carbonate (Renvela) 800 Mg Tab 2 TAB PO TIDM Simvastatin (Zocor) 20 Mg Tab 20 MG PO QAM Admission Information HPI (per Admitting provider): 70 year old female with PMH of Hyperlipemia, DM type 2 presents to the Emergency Room with complaints of worsening shortness of breath that started this morning. Pt had HD last Monday, where she did not have alot fluid removed because she was at her dry weight. This morning around 4 am she started to have SOB that got worst.Her daughter called the [facility] who said they could not get her in today. They advised the daughter to take the patient to the [facility]. On their to the [facility], her SOB got worst and they drove her to the ED. currently pt said that her SOB improved alittle. she denies any chest pain, palpitation, fever, dizziness and SOB. case discussed with Dr. Gupta in the ED that put order for pt to get HD this morning. Physical Exam (per Admitting): General Appearance: WD/WN, no apparent distress Head: normocephalic, atraumatic Eyes: normal inspection, PERRL, EOMI ENT: normal ENT inspection, hearing grossly normal Neck: supple, no JVD Respiratory/Chest: chest non-tender, normal breath sounds, no respiratory distress, no accessory muscle use Cardiovascular: regular rate, rhythm, no JVD Abdomen/GI: normal bowel sounds, non tender, soft Back: normal inspection, no CVA tenderness Extremities/Musculoskelatal: normal inspection, no calf tenderness Neurologic/Psych: alert, normal mood/affect, oriented x 3 Skin: warm/dry, no rash Hospital Course Patient was admitted with shortness of breath, thought possibly related to volume overload. Patient does have ESRD on HD. Nephrology was consulted and patient had HD while inpatient x2 sessions with volume removed as tolerated. Patient was weaned off supplemental oxygen. TTE did not show any wall motion or valvular abnormalities. Patient symptomatically improved after HD. No changes were made to patient's medications. Patient deemed stable for discharge with Family Medicine follow up. PE on discharge: General- awake; alert; NAD Eyes- EOMI; no scleral icterus Neck- no stridor; trachea midline Lungs- CTA bilaterally; no wheezes/crackles Heart- RRR; no m/r/g Abdomen- soft; NTND; nBS Back- no gross abnormalities Extremities- no c/c/e; left forearm fistula Neuro- no gross focal deficits Skin- no appreciable rash . Total time spent on discharge = This includes examination of the patient, discharge planning, medication reconciliation, and communication with other providers. Discharge Instructions Discharge Instructions Admission Reason for Admission: Sob, Shorness Of Breath Discharge Discharge Diagnosis / Problem: Shortness of breath Discharge Goals Goal(s): Decrease discomfort Activity Recommendations Activity Limitations: resume your previous activity . Instructions / Follow-Up Instructions / Follow-Up Please schedule a hospital discharge follow up appointment with your primary care provider Dr. Dockery. Please resume your normal outpatient dialysis schedule. Dr. Gupta will call and coordinate with your dialysis center. Current Hospital Diet Patient's current hospital diet: Renal Diet, Diabetes Type 2 Diet Discharge Diet Recommended Diet: Diabetes Type 2 Diet, Renal Diet Pending Studies Studies pending at discharge: no Laboratory Results Hemoglobin A1c Test 05/05/16 11:30 Range/Units Estimated Average Glucose 180 mg/dl Hemoglobin A1c 7.9 H 4.5-5.6 % Lipid Panel Test 05/05/16 11:30 Range/Units Triglycerides Level 192 H 0-150 mg/dl Cholesterol Level 126 0-200 mg/dl HDL Cholesterol 35 mg/dl Cholesterol/HDL Ratio 3.6 LDL Cholesterol, Calculated 53 mg/dl Medical Emergencies . Who to Call and When: Medical Emergencies: If at any time you feel your situation is an emergency, please call 911 immediately. . Non-Emergent Contact Non-Emergency issues call your: Primary Care Provider . . "Provider Documentation" section prepared by Bhavya Yadav. VTE Core Measure Inpt VTE Proph given/why not?: Unfractionated heparin SQ Additional Copies To Jack Dockery M.D. ([email or web address])
[2016-06-08] MEDS ORDERED: INSULIN DETEMIR FLEXPEN/FLEX TOUCH 100 UNITS/ML 3ML SC SCH (09:00)
== END 2016-06-07 17:00 | disposition home or self-care (01) | DRG 291 ==
LOC: CANRESERV → ENRESERVTM → ENRESERVDT → C.EDB 05:43 → C.MSICU 08:44 → EDBEDREQ 08:47
PROVIDERS: ADMIT Internal Medicine; ATTEND Internal Medicine
PROC: 5A1D00Z (ICD-10-PCS; principal; 2016-06-06)
DX: I50.9 Heart failure, unspecified (principal); N18.6 End stage renal disease; I12.0 Hypertensive chronic kidney disease with stage 5 chronic kidney disease or end stage renal disease; I34.0 Nonrheumatic mitral (valve) insufficiency; E78.5 Hyperlipidemia, unspecified; E83.51 Hypocalcemia; E11.21 Type 2 diabetes mellitus with diabetic nephropathy; E11.319 Type 2 diabetes mellitus with unspecified diabetic retinopathy without macular edema; F41.9 Anxiety disorder, unspecified; Z99.2 Dependence on renal dialysis

== ENCOUNTER → 2016-06-06 | Day surgery (SDC) | payer BC ==
[2016-05-25 12:26] VITALS: Ht 165.1 cm; Wt 84.5 kg
[~2016-06-06] VITALS: Ht 165.1 cm; Wt 84.5 kg
[~2016-06-06] MED LIST changes: +ATROPINE SULFATE 0.1 MG/ML 5ML SYR IV PRN; +BRIMONIDINE TART 0.2% OP SOLN PER DROP CHARGE ONE; +CYCLOPENTOLATE HCL 1% OP SOLN PER DROP CHARGE OPR SCH; +EpHEDrine SULFATE INJ 50 MG/ML AMP IV PRN; +EpINEphrine INJ 1MG/ML AMP 1 MG/ML AMP ONE; -HMLI SC; +KETOROLAC 0.5% OP SOLN PER DROP CHARGE OPR SCH; +LACTATED RINGER'S 1000ML 500 ML IV SCH; +LIDOCAINE 4% OP SOLN DROP CHARGE ONE; +LIDOCAINE 4% OP SOLN DROP CHARGE OPR SCH; +LIDOCAINE HCL 1% MPF 2 ML VIAL ONE; +MOXIFLOXACIN OPH SOLN PER DROP CHARGE ONE; +MOXIFLOXACIN OPH SOLN PER DROP CHARGE OPR SCH; +PHENYLEPHRINE HCL 2.5% OP SOLN PER DROP CHARGE OPR SCH; +POVIDONE-IODINE OP SOLN 30 ML BTL ONE; +PROPARACAINE 0.5% OP SOLN PER DROP CHARGE OPR SCH; +TOBRAMYCIN/DEXAMETHASONE OPH OINT PER APPLN CHARGE ONE; +TROPICAMIDE 1% OP SOLN PER DROP CHARGE OPR SCH
== END | disposition home or self-care (01) ==
LOC: EDSTATUS 09:15 → C.PAT 11:35
PROVIDERS: ATTEND Ophthalmology

== ENCOUNTER → 2016-10-10 | Outpatient (CLI) | payer BC ==
[~2016-10-10] MED LIST changes: +B-COTAB97 PO; +CINA0.42 PO; +CZR50 PO; -FURO-85 PO; +INSU3INJ3 SC; -INSUINJ12 SC; +LSX80 PO
[2016-10-10 16:58] LABS: ALB/GLOB RATIO 0.8 (0.9-2); ALKALINE PHOSPHATASE 154 U/L (45-117); ALT/SGPT 30 U/L (12-78); AST/SGOT 20 U/L (15-37); BLOOD UREA NITROGEN 48 mg/dl (7-18); CALCIUM 7.5 mg/dl (8.5-10.1); CARBON DIOXIDE 24 mmol/L (21-32); CHLORIDE 97 mmol/L (98-107); CHOLESTEROL 110 mg/dl (0-200); CHOLESTEROL/HDL RATIO 3.4; GLUCOSE 220 mg/dl (70-99); HDL CHOLESTEROL 32 mg/dl; POTASSIUM 4.1 mmol/L (3.5-5.1); SODIUM 135 mmol/L (136-145); TRIGLYCERIDES 197 mg/dl (0-150); VERY LOW DENSITY LIPOPROT CALC 39 mg/dl
[2016-10-10 17:12] LABS: BASO % 0.2 %; BASO ABS # 0.01 K/uL (0-0.2); COMPLETE YES; EOS % 1.9 %; HEMATOCRIT 30.8 % (37-47); IG% 0.2 %; LYMPH % 38.3 %; LYMPH ABS # 2.37 K/uL (1.2-3.4); MEAN CELL VOLUME 93.1 fL (80-100); MEAN CORPUSCULAR HEMOGLOBIN 33.2 pg (25-34); MEAN CORPUSCULAR HGB CONC 35.7 g/dl (32-36); MONO % 6.3 %; NEUT % 53.1 %; PLATELET COUNT 170 K/uL (130-400); RED BLOOD COUNT 3.31 M/uL (4.2-5.4); WHITE BLOOD COUNT 6.18 K/uL (4.8-10.8)
[2016-10-11 06:17] LABS: ESTIMATED AVERAGE GLUCOSE 183 mg/dl; HA1C FLAG Normal (Normal)
== END | disposition home or self-care (01) ==
LOC: C.LABSPEC 14:25
PROVIDERS: ATTEND Family Medicine
DX: E11.9 Type 2 diabetes mellitus without complications (principal)

== ENCOUNTER → 2017-01-10 | Outpatient (CLI) | payer BC ==
[2017-01-10 14:15] LABS: BASO % 0.2 %; BASO ABS # 0.01 K/uL (0-0.2); COMPLETE YES; EOS % 1.2 %; HEMATOCRIT 33.4 % (37-47); IG% 0.4 %; LYMPH % 37.3 %; LYMPH ABS # 1.91 K/uL (1.2-3.4); MEAN CELL VOLUME 94.9 fL (80-100); MEAN CORPUSCULAR HEMOGLOBIN 32.4 pg (25-34); MEAN CORPUSCULAR HGB CONC 34.1 g/dl (32-36); MEAN PLATELET VOLUME 9.9 fL (7.4-10.4); MONO % 6.4 %; NEUT % 54.5 %; PLATELET COUNT 170 K/uL (130-400); RED BLOOD COUNT 3.52 M/uL (4.2-5.4); WHITE BLOOD COUNT 5.12 K/uL (4.8-10.8)
[2017-01-10 14:27] LABS: ESTIMATED AVERAGE GLUCOSE 169 mg/dl; HA1C FLAG Normal (Normal)
[2017-01-10 15:17] LABS: ALB/GLOB RATIO 0.9 (0.9-2); ALKALINE PHOSPHATASE 136 U/L (45-117); ALT/SGPT 27 U/L (12-78); AST/SGOT 15 U/L (15-37); BLOOD UREA NITROGEN 25 mg/dl (7-18); BUN/CREATININE RATIO 5.1 (10-20); CALCIUM 8.7 mg/dl (8.5-10.1); CARBON DIOXIDE 26 mmol/L (21-32); CHLORIDE 99 mmol/L (98-107); CHOLESTEROL 110 mg/dl (0-200); CHOLESTEROL/HDL RATIO 3.3; GLUCOSE 231 mg/dl (70-99); HDL CHOLESTEROL 33 mg/dl; LDL CHOLESTEROL CALCULATED 45 mg/dl; POTASSIUM 3.9 mmol/L (3.5-5.1); SODIUM 135 mmol/L (136-145); TRIGLYCERIDES 161 mg/dl (0-150); VERY LOW DENSITY LIPOPROT CALC 32 mg/dl
== END | disposition home or self-care (01) ==
LOC: C.LABSPEC 13:35
PROVIDERS: ATTEND Family Medicine
DX: E11.9 Type 2 diabetes mellitus without complications (principal); E78.2 Mixed hyperlipidemia; I10 Essential (primary) hypertension